=== PATIENT | male | born 1950 | race Caucasian/White ===

== ENCOUNTER 2021-01-22 10:21 | Day surgery (SDC) | payer MEDICARE, OTHER, SELFPAY ==
--- NOTE | 2021-01-21 12:21 | HO.ANESPROP2 ---
Documented by User: Meredith Burkett NP 01/21/21 12:21 HPI - Anesthesia Eval Consult details Narrative: 70yo M for Colonoscopy PENDING SALE TO [facility] Past Medical History Medical History (Updated 01/16/21 @ 11:20 by Maida Fong, TRAVIS) Diabetes Diverticulosis History of Lewis's esophagus HTN (hypertension) Hx of upper gastrointestinal hemorrhage Internal hemorrhoids Sleep apnea Surgical History Surgical History (Updated 01/16/21 @ 11:20 by Maida Fong, RN) History of hand surgery Hx of colonoscopy Hx of esophagectomy Social History Social History Patient Tobacco Use Status: Never used Tobacco Use of substances other than those prescribed or required for medical reasons: No Are you DNR?: No Advance Directives: No Advance Directives Information Provided: Yes Meds Allergies Allergy/AdvReac Type Severity Reaction Status Date / Time No Known Allergies Allergy Verified 01/22/21 10:31 [No Known Allergies*] Home Medications Medication Instructions Recorded Confirmed Last Taken Type aspirin 81 mg tablet,delayed 81 mg PO DAILY 01/16/21 01/16/21 Unknown History release atorvastatin 20 mg tablet 20 mg PO DAILY 01/16/21 01/16/21 Unknown History diltiazem HCl 240 mg capsule,24 240 mg PO DAILY 01/16/21 01/16/21 01/22/21 History hr,extended release metformin 500 mg tablet 500 mg PO DAILY 01/16/21 01/16/21 Unknown History metoprolol succinate 01/16/21 01/22/21 History pantoprazole 40 mg tablet,delayed 40 mg PO DAILY 01/16/21 01/16/21 01/22/21 History release valsartan 160 1 tab PO DAILY 01/16/21 01/16/21 Unknown History mg-hydrochlorothiazide 25 mg tablet Exam Exam Date and Time: January 21, 2021 1221 Assessment and Plan Assessment Anesthesia Assessment: Chart Reviewed Documented by User: Shira Apodaca MD 01/22/21 11:34 PENDING SALE TO [facility] Past Medical History Medical History (Updated 01/16/21 @ 11:20 by Maida Fong RN) Diabetes Diverticulosis History of Lewis's esophagus HTN (hypertension) Hx of upper gastrointestinal hemorrhage Internal hemorrhoids Sleep apnea Family History Family history of problems with anesthesia: No Surgical History Surgical History (Updated 01/16/21 @ 11:20 by Maida Fong RN) History of hand surgery Hx of colonoscopy Hx of esophagectomy History of Problems with Anesthesia: No Social History Social History Patient Tobacco Use Status: Never used Tobacco Use of substances other than those prescribed or required for medical reasons: No Are you DNR?: No Advance Directives: No Advance Directives Information Provided: Yes Meds Allergies Allergy/AdvReac Type Severity Reaction Status Date / Time No Known Allergies Allergy Verified 01/22/21 10:31 [No Known Allergies*] Home Medications Medication Instructions Recorded Confirmed Last Taken Type aspirin 81 mg tablet,delayed 81 mg PO DAILY 01/16/21 01/16/21 Unknown History release atorvastatin 20 mg tablet 20 mg PO DAILY 01/16/21 01/16/21 Unknown History diltiazem HCl 240 mg capsule,24 240 mg PO DAILY 01/16/21 01/16/21 01/22/21 History hr,extended release metformin 500 mg tablet 500 mg PO DAILY 01/16/21 01/16/21 Unknown History metoprolol succinate 01/16/21 01/22/21 History pantoprazole 40 mg tablet,delayed 40 mg PO DAILY 01/16/21 01/16/21 01/22/21 History release valsartan 160 1 tab PO DAILY 01/16/21 01/16/21 Unknown History mg-hydrochlorothiazide 25 mg tablet Exam Airway Mallampati Class: II TM Dist: >3cm Denture: Upper Assessment and Plan Assessment Anesthesia Assessment: Anesthesia Plan Discussed and Chart Reviewed Final Anesthetic Review Family History of Problems with Anesthesia: No History of Problems with Anesthesia: No NPO: Yes ASA Class: III Final Preanesthetic Review: No Changes in Pt Med Stat, Meds/Allgs Chart Reviewed, Consent Obtained/Reviewed and Anes Risks/Benef Reviewed Patient Risk: Intermediate Procedure Risk: Intermediate Anesthetic Plan Anesthetic Plan: MAC: Disposition: Standard PACU
[2021-01-22 10:38] VITALS: BP 123/73; PULSE 75; RESP 16; TEMP 36.8; O2SAT 97; BMI 31.6
[2021-01-22] MEDS: Lactated Ringers 1,000 ML 100 ML IVCONT (10:57)
[2021-01-22 11:01] LABS: Glucose, Whole Blood 106 mg/dL (60-115)
[2021-01-22 12:27] VITALS: BP 97/55; PULSE 59; RESP 16; TEMP 36.3; O2SAT 95
--- NOTE | 2021-01-22 12:33 | PM.OP ---
Brief Operative Note Date of Service: 01/22/21 Pre-op diagnosis: Screening, Hx of polyps Post-op diagnosis: other (Diverticulosis) Procedure: Colonoscopy to the cecum and TI Surgeon: Bird Arora Anesthesia: MAC Was an Live Truck Operator used for this Procedure?: No Estimated blood loss (mL): 0 Pathology: none sent Condition: stable Disposition: PACU
[2021-01-22 12:51] VITALS: BP 101/64; PULSE 68; RESP 16; TEMP 36.3; O2SAT 95
--- NOTE | 2021-01-22 13:07 | OP_ITS ---
SURGEON: Bird Arora MD INDICATIONS: The patient presents for evaluation of personal history of tubular adenoma of the colon and colorectal cancer screening. Full consent has been obtained from him for this, including risks of bleeding and perforation. PREOPERATIVE DIAGNOSIS: POSTOPERATIVE DIAGNOSIS: PROCEDURE PERFORMED: Colonoscopy to cecum and terminal ileum. ESTIMATED BLOOD LOSS: COMPLICATIONS: ANESTHESIA: Monitored anesthesia care. ASSISTANTS: SPECIMENS: PREOPERATIVE DIAGNOSES: Colorectal cancer screening and personal history of tubular adenoma of the colon. POSTOPERATIVE DIAGNOSES: Colorectal cancer screening and personal history of tubular adenoma of the colon, diverticulosis and internal hemorrhoids. DESCRIPTION OF PROCEDURE: The patient was placed in the left lateral decubitus position. The digital rectal exam revealed no abnormalities. The Olympus video pediatric colonoscope was entered into the rectum and advanced easily to the cecum. Once in the cecum, I did identify normal-appearing cecal pouch with appendiceal orifice and a normal-appearing ileocecal valve. The terminal ileum was cannulated and appeared normal. The scope was withdrawn back in the colon. The entire cecum and ileocecal valve appeared normal. The scope was slowly withdrawn assessing all mucosal surfaces carefully. Preparation was excellent. I did not visualize any sign of polyps, colitis, nor angiodysplasia. There was a mild amount of sigmoid diverticulosis. In the rectum, scope was retroflexed visualizing small internal hemorrhoids, but no other pathology. The rectal mucosa appeared normal. The scope was straightened and withdrawn from the patient. He tolerated the procedure well and was returned to the recovery area in stable condition. IMPRESSION: 1. Diverticulosis. 2. Internal hemorrhoids. PLAN: Given his previous history of tubular adenoma, I would recommend a followup colonoscopy in 5 years. He will otherwise see me on a p.r.n. basis. He was advised that he could resume his aspirin today. MD GABRIELA Lopes/ABDELRAHMAN / [id number]
== END 2021-01-22 13:30 | disposition home or self-care (01) ==
PROVIDERS: PCP Internal Medicine; Visit Provider Internal Medicine
PROC: 0DJD8ZZ Inspection of Lower Intestinal Tract, Via Natural or Artificial Opening Endoscopic (ICD-10-PCS; CPT 45378; principal; 2021-01-22 11:30)
DX: Z12.11 Encounter for screening for malignant neoplasm of colon (principal); Z86.010 Personal history of colon polyps; K57.30 Diverticulosis of large intestine without perforation or abscess without bleeding; K64.8 Other hemorrhoids; K21.9 Gastro-esophageal reflux disease without esophagitis; I10 Essential (primary) hypertension; G47.33 Obstructive sleep apnea (adult) (pediatric); E11.9 Type 2 diabetes mellitus without complications; Z79.84 Long term (current) use of oral hypoglycemic drugs; Z79.82 Long term (current) use of aspirin; Z79.899 Other long term (current) drug therapy; Z99.89 Dependence on other enabling machines and devices; Z87.19 Personal history of other diseases of the digestive system; Z90.49 Acquired absence of other specified parts of digestive tract
CPT/HCPCS: G0105; 82947